=== PATIENT | female | born 1995 | race Two or more races ===

== ENCOUNTER 2017-01-23 22:39 | Emergency (ER) | payer OTHER ==
[~2017-01-23] VITALS: Ht 160 cm; Wt 57.2 kg
[2017-01-24] MEDS ORDERED: IBUPROFEN600 MG ORAL (00:17)
[2017-01-24 00:22] VITALS: BP 141/86
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
--- NOTE | 2017-01-25 08:43 | Diagnostic Imaging Report ---
History: Pain. Technique: Frontal, lateral, and oblique views of the left knee are provided. Comparison: No prior study is available for comparison. Findings: Overall bony mineralization is within normal limits. There is no evidence of acute fracture or dislocation. No significant erosive or arthritic change is noted. The soft tissues appear grossly normal. Trace effusion is noted. Impression: Trace suprapatellar effusion. No evidence of acute fracture or dislocation.
== END 2017-01-24 00:22 | disposition home or self-care (01) ==
LOC: EMR 23:20
DX: S83.92XA Sprain of unspecified site of left knee, initial encounter (principal); V18.0XXA Pedal cycle driver injured in noncollision transport accident in nontraffic accident, initial encounter; Y93.55 Activity, bike riding; Y92.89 Other specified places as the place of occurrence of the external cause
CPT/HCPCS: 29530; 99283